=== PATIENT | male | born 1995 | race Caucasian/White ===

== ENCOUNTER 2021-03-02 12:59 | Emergency (ER) | payer SELFPAY ==
[~2021-03-02] VITALS: Ht 182.9 cm; Wt 107.0 kg
[2021-03-02 13:06] VITALS: BP 155/107
== END 2021-03-02 14:08 | disposition home or self-care (01) ==
LOC: ED 14:00
DX: K08.89 Other specified disorders of teeth and supporting structures (principal)
CPT/HCPCS: 99283

== ENCOUNTER 2021-03-17 17:31 | Emergency (ER) | payer SELFPAY ==
[~2021-03-17] VITALS: Ht 182.9 cm; Wt 105.0 kg
--- NOTE | 2021-03-17 17:57 | NUR ---
TASK RN. PT STATES RT ANKLE PAIN AND SWELLING AFTER FALLING OFF SKATEBOARD TODAY. PT GIVEN ICE FOR COMFORT. AWAITING ERMD ASSESSMENT.
[2021-03-17] MEDS ORDERED: HYDROmorphone 1 MG/ML, 1ML INJ ONE ×2 (18:47→20:46)
[2021-03-17] MEDS: HYDROmorphone 1 MG/ML, 1ML INJ IM PRN ×2 (18:49→20:50)
--- NOTE | 2021-03-17 19:15 | NUR ---
PT GIVEN DIALUDID FOR PAIN. CALL LIGHT WITHIN REACH.
[2021-03-17] MEDS ORDERED: PROPOFOL 10 MG/ML, 20ML IVPush ONE ×2 (20:00→21:00)
[2021-03-17] MEDS ORDERED: PROPOFOL 10 MG/ML, 20ML ONE (20:11)
--- NOTE | 2021-03-17 20:53 | NUR ---
POST REDUCTION XRAY AT BEDSIDE REMEDICATED FOR CONTINUED PAIN AT 10/10 REPORT FROM JANE DIAMOND
--- NOTE | 2021-03-17 21:33 | NUR ---
POST REDUCTION XRAY "NOT IDEAL" PER ERP. ORTHO CONSULTED. TO LEAVE SPLINT AND HAVE PATIENT F/U WITH ORTHO SINA
--- NOTE | 2021-03-17 21:58 | NUR ---
DISCHARGED IN CARE OF COMPETENT [employer] AFTER PO CHALLENGE, RST OF 14 X3 & TEACH BACK ON SUCCESSFUL R/T HOW TO CARE FOR RLE, HOW TO F/U, WHAT TO WATCH FOR, ETC. PATIENT ALSO DAFELY DEMONSTRATED USE OF CRUTCHES
[2021-03-17 21:59] VITALS: BP 132/93
== END 2021-03-17 22:02 | disposition home or self-care (01) ==
LOC: ED 20:49
DX: S82.61XA Displaced fracture of lateral malleolus of right fibula, initial encounter for closed fracture (principal); X50.0XXA Overexertion from strenuous movement or load, initial encounter; Y93.89 Activity, other specified; Y92.410 Unspecified street and highway as the place of occurrence of the external cause; Y99.8 Other external cause status
CPT/HCPCS: 27840; 73600; 73610; 96372; 99152; 99285; J1170

== ENCOUNTER 2021-06-07 19:46 | Emergency (ER) | payer MEDICAID ==
[~2021-06-07] VITALS: Ht 182.9 cm; Wt 90.0 kg
[2021-06-07] MEDS ORDERED: ONDANSETRON ODT 4 MG PO ONE (20:00)
[2021-06-07] MEDS ORDERED: KETOROLAC 30 MG/1 ML IM ONE (20:00)
[2021-06-07] MEDS ORDERED: ONDANSETRON ODT 4 MG ONE (20:14)
[2021-06-07] MEDS ORDERED: KETOROLAC 60 MG/2 ML ONE (20:15)
[2021-06-07 20:37] LABS: BASOPHILS % (AUTO) 0 % (0-1); EOSINOPHILS % (AUTO) 1 % (1-7); LYMPHOCYTES % (AUTO) 30 % (22-44); MEAN CORPUSCULAR HEMOGLOBIN 31.3 pg (27.5-34.5); MEAN CORPUSCULAR HGB CONC 34.6 g/dL (33.2-36.2); MEAN PLATELET VOLUME 7.5 fL (7.4-10.4); MONOCYTES % (AUTO) 7 % (2-9); NEUTROPHILS % (AUTO) 62 % (42-75); PLATELET COUNT 260 x10^3/uL (130-400); RED BLOOD COUNT 5.04 x10^6/uL (4.38-5.82); RED CELL DISTRIBUTION WIDTH 13.7 % (9.4-14.8)
[2021-06-07 20:42] LABS: ANION GAP 7 mmol/L (5-15); CHLORIDE 105 mmol/L (98-107); CREATININE 0.96 mg/dL (0.7-1.3)
[2021-06-07 21:18] LABS: MICROSCOPIC INDICATED
[2021-06-07 21:21] VITALS: BP 124/65
[2021-06-07] MEDS ORDERED: DIAZEPAM 5 MG/ML, 2ML ONE (21:49)
[2021-06-07] MEDS ORDERED: CEFDINIR 300 MG CAPSULE ONE ×2 (21:58→22:04)
[2021-06-07] MEDS ORDERED: CEFDINIR 300 MG CAPSULE PO/NG ONE (22:00)
[2021-06-07] MEDS ORDERED: DIAZEPAM 5 MG/ML, 2ML IVPush ONE (22:00)
--- NOTE | 2021-06-07 22:06 | NUR ---
Patient given discharge instructions and they have confirmed that they understand the instructions. Patient ambulatory with steady gait. NAD, all questions answered appropriately, denies additional needs at this time. No personal belongings left in room after discharge.
== END 2021-06-07 22:09 | disposition home or self-care (01) ==
LOC: ED 20:00
DX: M54.5 Low back pain (principal); M54.6 Pain in thoracic spine
CPT/HCPCS: 36415; 74176; 80048; 81001; 82040; 85025; 87086; 96372; 96374; 99284; J1885; J3360; Q0162